=== PATIENT | male | born 1990 | race American Indian/Alaskan Native ===

== ENCOUNTER 2023-03-17 17:28 | Emergency (ER) | payer SELFPAY ==
[2023-03-17] MEDS ORDERED: risperiDONE 0.5 MG Tab PO ONE (22:40)
[2023-03-17] MEDS ORDERED: LORazepam 1 MG Tab PO ONE (22:42)
[2023-03-17] MEDS ORDERED: OLANZapine 10 MG Vial IM ONE (23:50)
[2023-03-18] MEDS ORDERED: Nicotine 21 MG/24 Hr Patch TRDERM ONE (07:12)
[2023-03-18 07:16] LABS: BASOPHILS PERCENT AUTO 0.1 % (0.0-1.0); EOSINOPHILS PERCENT AUTO 10.6 % (1.0-3.0); HEMOGLOBIN 15.7 g/dL (14.0-18.0); LYMPHOCYTES PERCENT AUTO 46.5 % (20.5-50.1); MEAN CORPUSCULAR HGB CONC 33.4 g/dL (33.0-35.0); MEAN CORPUSCULAR VOLUME 92.7 fL (80-100); MONOCYTES PERCENT AUTO 13.4 % (2-8); NEUTROPHILS PERCENT AUTO 29.4 % (42.2-75.2); PLATELET COUNT,PLT 231 10^3/uL (150-450); RED BLOOD CELL COUNT 5.07 10^6/uL (4.6-6.2); WHITE BLOOD CELL COUNT,WBC 7.2 10^3/uL (5.0-10.0)
[2023-03-18 07:19] LABS: APPEARANCE,URINE CLEAR (CLEAR); BILIRUBIN,URINE NEGATIVE (NEGATIVE); COLOR,URINE YELLOW (YELLOW); GLUCOSE,URINE NEGATIVE (NEGATIVE); KETONES,URINE NEGATIVE (NEGATIVE); LEUKOCYTE ESTERASE,URINE NEGATIVE (NEGATIVE); NITRITE,URINE NEGATIVE (NEGATIVE); OCCULT BLOOD,URINE NEGATIVE (NEGATIVE); PROTEIN,URINE NEGATIVE (NEGATIVE); UROBILINOGEN,URINE 0.2 mg/dL (0.2-1.0)
[2023-03-18 07:21] LABS: AMPHETAMINES,URINE NEGATIVE (NEGATIVE); BARBITURATES,URINE NEGATIVE (NEGATIVE); BENZODIAZEPINE,URINE POSITIVE (NEGATIVE); MDMA (ECSTASY), URINE NEGATIVE (NEGATIVE); METHADONE,URINE NEGATIVE (NEGATIVE); METHAMPHETAMINES,URINE NEGATIVE (NEGATIVE); OPIATES,URINE NEGATIVE (NEGATIVE); OXYCODONE,URINE NEGATIVE (NEGATIVE); PHENCYCLIDINE,URINE NEGATIVE (NEGATIVE); TCA,URINE NEGATIVE (NEGATIVE)
[2023-03-18 07:46] LABS: A/G RATIO 1.03; ACETAMINOPHEN 0 ug/mL (10-30 (Therapeutic)); ALANINE AMINOTRANSFERASE,ALT 12 U/L (16-63); ALBUMIN 3.3 g/dL (3.4-5.0); ALKALINE PHOSPHATASE 93 U/L (46-116); ANION GAP 6.3 mEq/L (7-13); ASPARTATE AMNIOTRANSFERASE,AST 12 U/L (15-37); BILIRUBIN TOTAL 0.2 mg/dL (0.2-1.0); BLOOD UREA NITROGEN,BUN 7 mg/dL (7-18); BUN/CREATININE RATIO 6.8 (No establ ref range); CALCIUM 8.7 mg/dL (8.5-10.1); CARBON DIOXIDE,CO2 30 mmol/L (21-32); CHLORIDE,CL 109 mmol/L (98-107); CREATININE 1.03 mg/dL (0.70-1.30); EST CRCL DRUG DOSING (CG) 93.71 mL/min; ESTIMATED GFR 98 mL/min (>=60); GLUCOSE RANDOM 99 mg/dL (70-99); MAGNESIUM 2.2 mg/dL (1.8-2.4); POTASSIUM,K 4.3 mmol/L (3.5-5.1); PROTEIN TOTAL,TP 6.5 g/dL (6.4-8.2); SODIUM,NA 141 mmol/L (136-145); TSH ULTRASENSITIVE 5.38 uIU/mL (0.36-3.74)
[2023-03-18 07:47] LABS: ETHANOL BLOOD MEDICAL < 3 mg/dL (0)
[2023-03-18] MEDS ORDERED: risperiDONE 0.5 MG Tab PO ONE (12:09)
[2023-03-18] MEDS ORDERED: LORazepam 1 MG Tab PO ONE (12:10)
== END 2023-03-18 20:54 ==
LOC: DL.ED 17:28
DX: F20.0 Paranoid schizophrenia (principal); R45.850 Homicidal ideations; I10 Essential (primary) hypertension; F17.210 Nicotine dependence, cigarettes, uncomplicated; Z86.73 Personal history of transient ischemic attack (TIA), and cerebral infarction without residual deficits; Z79.82 Long term (current) use of aspirin; Z79.899 Other long term (current) drug therapy
CPT/HCPCS: 36415; 80053; 80143; 80179; 80305; 80307; 81003; 83735; 84443; 85025; 96372; 99284; 99285; A9270; J2405